=== PATIENT | male | born 1950 | race Caucasian/White ===

== ENCOUNTER 2019-01-26 12:00 | Emergency (ER) | payer BC ==
[~2019-01-26] VITALS: Ht 180.3 cm; Wt 99.8 kg
[2019-01-26 12:25] VITALS: BP 141/75
--- NOTE | 2019-01-26 14:55 | RAD ---
CT left knee without contrast HISTORY: Left knee pain. TECHNIQUE: Helical multiplanar reconstructed noncontrast CT imaging of the left knee was acquired. FINDINGS: No fracture or dislocation. No lytic or sclerotic bone lesion. Meniscal chondrocalcinosis. There is extensive chondrocalcinosis about the articular cartilage of the patella and femoral condyles. No joint effusion evident. Soft tissues are unremarkable. IMPRESSION: No acute osseous injury. Chondrocalcinosis. Exposure: One or more of the following individualized dose reduction techniques were utilized for this examination: 1. Automated exposure control 2. Adjustment of the mA and/or kV according to patient size 3. Use of iterative reconstruction technique Electronically signed by: Destin Hobbs MD (01/26/2019 2:52 PM) [facility]
--- NOTE | 2019-01-26 15:16 | PHYS DOC ---
Past Medical History Past Medical History: Arrhythmia, GERD, Hypertension, Other Additional Past Medical Histor: NEUROPATHY Past Surgical History: Pacemaker, Other Additional Past Surgical Histo: LEFT ANKLE SCREWS, HERNIA X'S 4, Alcohol Use: None Drug Use: None Adult General Chief Complaint Chief Complaint: PAIN CONTROL HPI HPI 68-year-old male presents to ER via POV in his motorized wheelchair for complaints of ongoing left lower extremity pain which has been going on for quite some time. Patient reports he had a fall last fall which increased chronic ongoing pain in his left lower extremity. Patient states he has been seen at the [facility] and had x-rays done as well as been seen by his primary care physician for further care. Patient reports he has been taking ibuprofen as well as prescribed oxycodone. Patient reports he has had Lidoderm patches as well as joby wraps. On arrival patient denies having patch or Joby wrap on for joint support and pain.and pain. Pt denies any recent or new injury. Patient states he was just seen by his primary care physician on Monday Review of Systems Review of Systems Constitutional: Denies fever or chills [] Eyes: Denies change in visual acuity, redness, or eye pain [] HENT: Denies nasal congestion or sore throat [] Respiratory: Denies cough or shortness of breath [] Cardiovascular: No additional information not addressed in HPI [] GI: Denies abdominal pain, nausea, vomiting, bloody stools or diarrhea [] : Denies dysuria or hematuria [] Musculoskeletal: Denies back pain. Reports chronic lt lower extremity pain Integument: Denies rash, swelling or skin lesions [] Neurologic: Denies headache, focal weakness or sensory changes [] All other systems were reviewed and found to be within normal limits, except as documented in this note. Allergies Allergies Allergies Coded Allergies Type Severity Reaction Last Updated Verified gabapentin Adverse Reaction Intermediate HALLUCINATIONS 01/26/19 Yes Physical Exam Physical Exam Constitutional: Well developed, well nourished, no acute distress, non-toxic appearance. [] HENT: Normocephalic, atraumatic, oropharynx moist, nose normal. [] Eyes: Pupils equal, conjunctiva normal, no discharge. [] Neck: Normal range of motion, no tenderness, supple, no stridor. [] Cardiovascular: Heart rate regular Lungs & Thorax: Resp. equal/nonlabored Abdomen: Bowel sounds normal, soft, no tenderness Skin: Warm, dry, no erythema, no rash. [] Back: No tenderness, no CVA tenderness. [] Extremities: No cyanosis, no clubbing, ROM intact, no edema. 2+ bilat. posterior tibial/dorsalis pedis Neurologic: Alert and oriented X 3, normal motor function, normal sensory f unction, no focal deficits noted. [] Psychologic: Affect normal, judgement normal, mood normal. [] Current Patient Data Vital Signs Vital Signs Date Time Temp Pulse Resp B/P (MAP) Pulse Ox O2 Delivery O2 Flow Rate FiO2 01/26/19 12:25 97.8 62 18 141/75 (97) 94 Room Air 97.8 EKG EKG [] Radiology/Procedures Radiology/Procedures PROCEDURE: CT LOWER EXTREMITY WO LEFT CT left knee without contrast HISTORY: Left knee pain. TECHNIQUE: Helical multiplanar reconstructed noncontrast CT imaging of the left knee was acquired. FINDINGS: No fracture or dislocation. No lytic or sclerotic bone lesion. Meniscal chondrocalcinosis. There is extensive chondrocalcinosis about the articular cartilage of the patella and femoral condyles. No joint effusion evident. Soft tissues are unremarkable. IMPRESSION: No acute osseous injury. Chondrocalcinosis. Exposure: One or more of the following individualized dose reduction techniques were utilized for this examination: 1. Automated exposure control 2. Adjustment of the mA and/or kV according to patient size 3. Use of iterative reconstruction technique Electronically signed by: Deshawn Hobbs MD (01/26/2019 2:52 PM) [facility] DICTATED and SIGNED BY: DESHAWN HBOBS MD DATE: 01/26/19 1456 Course & Med Decision Making Course & Med Decision Making Pertinent Imaging studies reviewed. (See chart for details) 1510: Patient was evaluated in the ER for complaints of ongoing pain in his left lower extremity- he remains PMS intact all extremities. Patient voiced frustration during this ER visit and so in-depth conversation was had with patient and his family regarding chronic pain and management which needed to be done by primary care physician and or pain management. Pt requested CT of his knee and so one was obtained with no acute findings. Results were discussed with patient with family at bedside. Discussed follow-up with primary care physician and/or orthopedics. Patient will be provided with Lidoderm patch prescription as he reported those have helped some. The patient was advised on ongoing use of Joby wraps. Education provided on signs and symptoms to return to ER. Discharge instructions were discussed. Chris Disclaimer Chris Disclaimer This electronic medical record was generated, in whole or in part, using a voice recognition dictation system. Departure Departure Impression: Primary Impression: Chronic pain of left lower extremity Disposition: HOME, SELF-CARE Condition: STABLE Referrals: Tin TURNER MD (PCP) SUNITHA HUDSON MD Patient Instructions: Chronic Pain, Knee Pain, Musculoskeletal Pain Additional Instructions: Continue home medications as prescribed. As discussed follow-up with your primary care physician and/or orthopedics for further care and reevaluation. EAMON WHITE APRN Jan 26, 2019 15:16
== END 2019-01-26 15:22 | disposition home or self-care (01) ==
LOC: ER 12:00
DX: G89.29 Other chronic pain (principal); M79.605 Pain in left leg; K21.9 Gastro-esophageal reflux disease without esophagitis; I10 Essential (primary) hypertension; Z98.890 Other specified postprocedural states; Z95.0 Presence of cardiac pacemaker; Z88.8 Allergy status to other drugs, medicaments and biological substances
CPT/HCPCS: 73700; 99284-25

== ENCOUNTER → 2019-02-11 | Outpatient (CLI) | payer BC ==
[2019-01-26 12:25] VITALS: BP 141/75
[~2019-02-11] MED LIST: AMLO10TA8 PO; ATOR10TA60 PO; CONTRAST GIVEN. MC PRN; DOCU50CA9 PO; DULO60CA44 PO; HYDR50TA6 PO; IBUP-1060 PO; IOHEXOL 180 MG/ML 10 ML VIAL. IT ONE; LIDOCAINE 1% Multi-Dose 20 ML VIAL. ID ONE; LISI-130 PO; METO50TA6 PO; MORP30TA PO; OMEP40CA5 PO; OXYC5CAP PO; PRED5TAB PO
--- NOTE | 2019-02-11 13:29 | KCIC ---
Lumbar myelogram 02/11/2019 Clinical History: Low back pain which radiates down the left leg. Technique: After the risks and benefits of the procedure were explained to the patient, written informed consent was obtained. The patient was placed prone on the fluoroscopy table and the lower back was prepped and draped in sterile fashion. 1% lidocaine was used as a local anesthetic. Under fluoroscopic guidance, the thecal sac of the lumbar cistern was punctured at the L3-4 level using a 25-gauge Enma needle. After confirming clear CSF return, 15 cc of Omnipaque 180 were injected through the needle into the thecal sac of the lumbar cistern under fluoroscopic guidance. Following this the needle was removed and hemostasis achieved at the puncture site. A sterile bandage was placed on the skin puncture site. AP, bilateral oblique, lateral and standing neutral, flexion and extension lateral digital radiographs of the lumbar spine were obtained. Following this the patient was taken to CT where a CT scan of the lumbar spine was performed. This will be reported separately. Following the examinations the patient was sent home with an instruction sheet. The patient tolerated the procedure well and there were no immediate complications. The total fluoroscopic time for this procedure was 1 minute 52 seconds. 9 digital spot radiographs were obtained. Findings: The patient has transitional vertebral anatomy. The transitional vertebral segment is partially sacralized. Degenerative changes consisting of varying degrees of disc space narrowing, vertebral endplate sclerosis and minimal to mild anterior and posterior vertebral body osteophyte formation are seen throughout the lumbar disc spaces. Degenerative changes are seen involving the facet joints throughout the mid and lower lumbar disc spaces. Mild anterior extradural defects are seen involving the contrast column at L1-2, L2-3, L3-4, L4-5 and L5-T. There is no evidence of complete block contrast at any level involving the lumbar disc spaces. The alignment of the lumbar vertebrae is maintained on the flexion and extension radiographs. Atherosclerotic calcification of the abdominal aorta and its branches is seen. IMPRESSION: Degenerative changes are seen throughout the lumbar spine as discussed above. There is no evidence of complete block of contrast at any level. Electronically signed by: Mk Sunshine MD (02/11/2019 1:26 PM) [facility]
--- NOTE | 2019-02-11 13:54 | KCIC ---
CT lumbar myelogram 02/11/2019 Clinical History: Low back pain which radiates down the left leg. Technique: This study was performed after a lumbar myelogram, contiguous, 0.625 mm axial sections were obtained through the lumbar spine. Sagittal, coronal and axial reconstructed images were obtained. One or more of the following individualized dose reduction techniques were utilized for this study: 1. Automated exposure control. 2. Adjustment of the mA and/or kV according to patient size. 3. Use of iterative reconstruction technique. Findings: Comparison is made to the patient's lumbar myelogram performed earlier today. The sagittal and coronal reconstructed images demonstrate 6 nonrib-bearing lumbar-appearing vertebrae consistent with transitional vertebral anatomy. The transitional vertebral segment will be referred to by the letter T. The transitional vertebrae is partially sacralized. Very mild S-shaped curvature of the thoracolumbar spine is seen. Degenerative changes consisting of varying degrees of disc space narrowing, vertebral endplate sclerosis and mild anterior and posterior vertebral body osteophyte formation are seen throughout the lumbar disc spaces. Vacuum disc phenomenon are seen involving the the L1-2 through L5-T discs. Atherosclerotic calcification of the abdominal aorta and its branches is noted. At the L1-2 disc space there is a mild to moderate generalized disc bulge. Degenerative changes are seen involving the facet joints bilaterally. These findings do not result in significant central spinal canal or neural foraminal stenosis. At the L2-3 disc space there is a mild generalized disc bulge. Degenerative changes are seen involving the facet joints bilaterally. There is mild ligamentum flavum hypertrophy bilaterally. These findings when combined do not result in significant central spinal canal or neural foraminal stenosis. At the L3-4 disc space there is a mild generalized disc bulge. This is eccentric to the right. Degenerative changes are seen involving the facet joints bilaterally. There is mild ligamentum flavum hypertrophy bilaterally. Mild right neural foraminal stenosis is seen. The left neural foramen is patent. At the L4-5 disc space there is a mild generalized disc bulge. This is eccentric to the right. Degenerative changes are seen involving the facet joints bilaterally. There is mild ligament flavum hypertrophy bilaterally. These findings do not result in significant central spinal canal stenosis. Mild right neural foraminal stenosis is seen. The left neural foramen is patent. At the L5-T disc space there is a mild generalized disc bulge. Superimposed on this disc bulge is a left paracentral/lateral focal disc herniation which extrudes superiorly and laterally to the left. The extruded disc fragment measures 1.6 x 0.7 x 1.0 cm in transverse, craniocaudal and AP dimensions. Degenerative changes are seen involving the facet joints bilaterally. There is mild ligamentum flavum hypertrophy bilaterally. These findings when combined do not result in significant central spinal canal stenosis. Severe left neural foraminal stenosis is seen. The disc herniation appears to impinge upon the left L5 nerve root within the left neural foramen. Mild right neural foraminal stenosis is seen. At the T-S1 disc space there is a minimal generalized disc bulge. Degenerative changes are seen involving the facet joints bilaterally. These findings do not result in significant central spinal canal or neural foraminal stenosis. IMPRESSION: 1. The patient has transitional vertebral anatomy as discussed above. 2. The changes of degenerative disc disease are seen throughout the lumbar spine. These findings do not result in significant central spinal canal stenosis at any level. Mild right neural foraminal stenosis is seen at L3-4, L4-5 and L5-T. At the L5-T disc space a left paracentral/lateral focal disc herniation is seen which extrudes inferiorly and laterally to the left. This results in severe left neural foraminal stenosis and appears to impinge upon the left L5 nerve root within the left neural foramen. Electronically signed by: Mk Sunshine MD (02/11/2019 1:51 PM) [facility]
== END | disposition home or self-care (01) ==
LOC: KCIC 10:50
PROVIDERS: ATTEND Physical Medicine & Rehabilitation
DX: M51.16 Intervertebral disc disorders with radiculopathy, lumbar region (principal); M51.25 Other intervertebral disc displacement, thoracolumbar region; M47.26 Other spondylosis with radiculopathy, lumbar region; M48.061 Spinal stenosis, lumbar region without neurogenic claudication; I70.0 Atherosclerosis of aorta; M25.78 Osteophyte, vertebrae; M89.38 Hypertrophy of bone, other site; G89.29 Other chronic pain
CPT/HCPCS: 72132; 72265; Q9965

== ENCOUNTER 2019-10-29 23:32 | Emergency (ER) | payer BC ==
[~2019-10-29] VITALS: Ht 170.2 cm; Wt 118.0 kg
[~2019-10-29 23:32] MED LIST changes: -CONTRAST GIVEN. MC PRN; -DULO60CA44 PO; +DULO60CA45 PO; -IOHEXOL 180 MG/ML 10 ML VIAL. IT ONE; -LIDOCAINE 1% Multi-Dose 20 ML VIAL. ID ONE; +OMEP40CA45 PO; -OMEP40CA5 PO
--- NOTE | 2019-10-30 00:10 | PHYS DOC ---
Past Medical History Past Medical History: Arrhythmia, GERD, Hypertension, Other Additional Past Medical Histor: NEUROPATHY Past Surgical History: Pacemaker, Other Additional Past Surgical Histo: LEFT ANKLE SCREWS, HERNIA X'S 4, Smoking Status: Former Smoker Alcohol Use: None Drug Use: None Adult General Chief Complaint Chief Complaint: CPR/FULL ARREST HPI HPI Patient is a 69 year old male presents via EMS for cardiac arrest. Patient with witness cardiac arrest. called 911. EMS coded patient via acls protocal. Pre hospital patient received multiple rounds of EPI. Per EMS-- patient went into a vfib/vtach rhythm. Patient was defibrillated x1. Patient was intubated by EMS. On arrival to ER-- chest compressions by device and bagged via ET tube and in asystole Review of Systems Review of Systems Unable to obtain due to patient's medical condition Allergies Allergies Allergies Coded Allergies Type Severity Reaction Last Updated Verified gabapentin Adverse Reaction Intermediate HALLUCINATIONS 01/26/19 Yes Physical Exam Physical Exam HENT: Normocephalic, atraumatic, ET tube in place Eyes: Fixed and dilated Neck: C-collar in place Cardiovascular: aSystole, no pulses with compressions Lungs & Thorax: Bilateral breath sounds clear to auscultation no spontaneous respirations Abdomen: soft abdomen[] Skin: Warm, dry, no erythema, no rash. [] Neurologic:unresponsive EKG EKG [] Radiology/Procedures Radiology/Procedures [] Course & Med Decision Making Course & Med Decision Making Pertinent Labs and Imaging studies reviewed. (See chart for details) []ET tube placement confirmed. 2nd I/O placed right prox tib Patient coded via ACLS protocal-- please see code sheet. Patient never regained pulses. Cardiac rhythm-- asystole Time 23:43 Dragon Disclaimer Dragon Disclaimer This electronic medical record was generated, in whole or in part, using a voice recognition dictation system. Departure Departure Impression: Primary Impression: Cardiac arrest Disposition: 20 Referrals: Tin TURNER MD (PCP) CANDIS REAL DO Oct 30, 2019 00:10
== END 2019-10-30 03:38 | disposition expired ==
LOC: ER 23:32
DX: I46.9 Cardiac arrest, cause unspecified (principal); I10 Essential (primary) hypertension; K21.9 Gastro-esophageal reflux disease without esophagitis; Z95.0 Presence of cardiac pacemaker; Z87.891 Personal history of nicotine dependence; Z88.8 Allergy status to other drugs, medicaments and biological substances
CPT/HCPCS: 31500; 99285-25